=== PATIENT | male | born 1975 | race Two or more races ===

== ENCOUNTER 2025-03-28 21:46 | Emergency (ER) | payer SELFPAY ==
[2025-03-28] VITALS (19 sets, daily range): BP systolic 137–191; BP diastolic 91–120; PULSE 59–69; TEMP 36.3; O2SAT 96–97; BMI 29.8
--- NOTE | 2025-03-28 22:13 | CT_ITS ---
The [address] [address] Patient Name: GIANFRANCO VIEYRA MRN: [id number] date: 1975 Sex: M Assigned Patient Location: ER Current Patient Location: ED.MAIN Accession/Order Number: [id number] Exam Date: 03/28/2025 22:30 Report Date: 03/28/2025 23:14 At the request of: BERNA SANDERS MD Procedure: CT head/brain wo con Unenhanced head CT TECHNIQUE: Contiguous axial imaging of the head. The CT exam was performed using one or more the following dose reduction techniques: Automated exposure control, adjustment of the MA and/or Kv according to patient size, or use of the iterative reconstruction technique. COMPARISON: None HISTORY: Chest pain. Left-sided numbness. VENTRICLES: Within normal limits ATROPHY: None BRAIN PARENCHYMA: Adequate aguilera-white matter differentiation identified. HEMORRHAGE: 15 mm oval intraparenchymal hemorrhage in the posterior portion of the right basal ganglia identified. May represent hypertensive bleed. Not related to trauma or aneurysm. HERNIATION: No mass effect or herniation INFARCTION: No recent vascular distribution infarction is seen. EXTRA-AXIAL FLUID COLLECTIONS None MIDBRAIN: Unremarkable EMILIANO: Unremarkable MEDULLA: Unremarkable SINUSES: Unremarkable ORBITS: Grossly unremarkable MASTOIDS: Unremarkable BONY STRUCTURES Intact ADDITIONAL FINDINGS: CT/CT head/brain wo con IMPRESSION: 15 mm intraparenchymal bleed in the posterior aspect of the right basal ganglia. The preliminary given 11:05 PM 03/28/2025 Impression dictated by: Dinesh Schmidt M.D. 03/28/2025 11:14 PM [facility] Electron[facility] authenticated by: [id number] Y Date: 03/28/2025 23:14
--- NOTE | 2025-03-28 22:13 | ECG_ITS ---
The [facility] Test Date: 2025-03-28 Pat Name: GIANFRANCO VIEYRA Department: Room: - Gender: Male [employer]: : 1975 Requested By: [id number] Order Number: [id number] Reading MD: KELSI SAINI M.D. Measurements Intervals Mcdonough Rate: 60 P: 33 SC: 178 QRS: 35 QRSD: 104 T: 31 QT: 408 QTc: 409 Interpretive Statements 1100 Sinus rhythm 9110 normal ECG No previous ECG available for comparison Electronically Signed On 03-29-2025 18:39:24 EDT by KELSI SAINI M.D.
--- NOTE | 2025-03-28 22:13 | XR_ITS ---
[place] [id number] Patient Name: GIANFRANCO VIEYRA MRN: [id number] date: 1975 Sex: M Assigned Patient Location: ER Current Patient Location: ED.MAIN Accession/Order Number: [id number] Exam Date: 03/28/2025 22:30 Report Date: 03/28/2025 23:26 At the request of: BERNA SANDERS MD Procedure: XR chest 1V Plain film chest Single view HISTORY: Chest pain COMPARISON: None FINDINGS: SUPPORT DEVICES: None POSTSURGICAL CHANGES: None HEART: Within normal limits PULMONARY JEB: Within normal limits MEDIASTINUM: Unremarkable LUNGS AND PLEURA: No acute lung process, pleural effusion or pneumothorax identified. BONY STRUCTURES: Intact ADDITIONAL FINDINGS None XR/XR chest 1V IMPRESSION: No acute process. Impression dictated by: Dinesh Schmidt M.D. 03/28/2025 11:26 PM Dictation Location: [place] [address] Electronically authenticated by: [id number] Y Date: 03/28/2025 23:26
--- NOTE | 2025-03-28 22:14 | ED.GENADUL1 ---
HPI HPI - General Adult General Chief complaint: Neuro Symptoms/Deficit Stated complaint: NUMBNESS ON L SIDE, CHEST PAIN Time Seen by Provider: 03/28/25 21:54 Source: patient and family Limitations: language barrier History of Present Illness HPI narrative: 49-year-old male presents for a chief complaint of chest pain. He was accompanied by his daughter who provides an excellent interpretation. For about 3 days he has had a pain in the left side of his neck, not associated with any injury. Beginning about 4 or 5:00 today he developed this pain in his chest that feels like a heaviness since been intermittent. They last for about a minute at a time. His left arm and his left leg felt heavy as well. He does not complain of any weakness. He had a headache a few days ago but went away. He has been able to ambulate without difficulty. Related Data Home Medications ?Medication ?Instructions ?Recorded ?Confirmed No Known Home Medications 03/28/25 03/28/25 Allergies Allergy/AdvReac Type Severity Reaction Status Date / Time No Known Drug Allergies Allergy Verified 03/28/25 21:57 Opioid HPI Opioid Management Most Recent Opioid Data: Last Pain Scale 5 Today, 22:15 Last ED Pain Assessment Today, 22:15 Review of Systems ROS Narrative A ten point review of systems is negative except as noted above. PFSH PFSH Social History Little interest or pleasure in doing things: not at all Feeling down, depressed, or hopeless: not at all Exam Narrative Exam Narrative: Nurses note and vital signs reviewed and patient is not hypoxic. General:The patient appears well and in no apparent distress.Patient is resting comfortably on cart. Skin:Warm, dry, no pallor noted.There is no rash noted. Head:Normocephalic, atraumatic Eye: Normal conjunctiva, no drainage, EOMI. PERRL Ears, Nose, Mouth, and Throat: oral mucosa is moist. Nares patent. Cardiovascular:Regular Rate and Rhythm Respiratory:Patient is in no distress, no accessory muscle use, lungs are clear to auscultation, no wheezing, rales or rhonchi Back:non-tender GI: Soft and nontender Musculoskeletal: The patient has no evidence of calf tenderness, no pitting edema, symmetrical pulses noted bilaterally Neurological:A&O, normal speech; upper lower extremity strength 5 out of 5 and symmetric; cranial nerves II through XII intact Psychiatric:Cooperative Constitutional Vital Signs, click to edit/add: Last Vital Signs Temp 97.4 F L 03/28/25 21:58 Pulse 65 03/28/25 23:20 Resp 18 03/28/25 23:00 BP 153/100 H 03/28/25 23:15 Pulse Ox 97 03/28/25 22:00 O2 Del Method Room Air 03/28/25 21:58 Course Vital Signs Vital signs: Vital Signs Blood Pressure 184/117 H 03/28/25 21:57 Pulse Oximetry 97 03/28/25 21:57 Temperature 97.4 F L 03/28/25 21:58 Pulse Rate 65 03/28/25 23:20 Respiratory Rate 18 03/28/25 23:00 Blood Pressure 153/100 H 03/28/25 23:15 Pulse Oximetry 97 03/28/25 22:00 Oxygen Delivery Method Room Air 03/28/25 21:58 Medical Decision Making MDM Narrative Medical decision making narrative: 15 mm intraparenchymal hemorrhages noted at the right basal ganglia. This is likely from hypertension. He was hypertensive when he presented but his blood pressure improved without intervention. He has a normal neurologic exam. Cardiac workup is negative. I have spoken to Dr. Hammond at [facility] and the patient is excepted to be transferred there. The patient is stable and agreeable for transfer. The consulting physician suggested that we place the patient on a Cardene drip to keep his systolic blood pressure less than 140 and this is being accomplished. Treatment diagnosis and disposition were discussed with the patient and his family. Differential Diagnosis Differential Diagnosis: Hypertension, intraparenchymal hemorrhage, CVA Lab Data Lab results reviewed: Yes I reviewed the patient's lab results Labs: Lab Results 03/28/25 Range/Units 22:05 WBC 6.0 (4.0-11.0) 10^3/uL RBC 4.64 L (4.70-6.10) 10^6/uL Hgb 13.5 L (14.0-18.0) g/dL Hct 40.1 L (42.0-54.0) % MCV 86.4 (80.0-94.0) fL MCH 29.1 (25.9-34.0) pg MCHC 33.7 (29.9-35.2) g/dL RDW 11.9 (11.0-15.0) % Plt Count 144 L (150-450) 10^3/uL MPV 10.7 (9.5-13.5) fL Neut % (Auto) 42.6 L (43.0-75.0) % Lymph % (Auto) 42.6 (20.5-60.0) % [place] % (Auto) 12.5 H (1.7-12.0) % Eos % (Auto) 1.5 (0.9-7.0) % Baso % (Auto) 0.5 (0.2-2.0) % Neut # (Auto) 2.5 (1.4-6.5) 10^3/uL Lymph # (Auto) 2.6 (1.2-3.8) 10^3/uL [place] # (Auto) 0.8 (0.3-0.8) 10^3/uL Eos # (Auto) 0.1 (0.0-0.7) 10^3/uL Baso # (Auto) 0.0 (0.0-0.1) 10^3/uL Abs Immat Gran (auto) 0.02 (0.00-0.03) 10^3/uL Imm/Tot Granulo (auto) 0.3 (0.0-0.5) % Sodium 139 (136-145) mmol/L Potassium 4.0 (3.5-5.1) mmol/L Chloride 104 (98-107) mmol/L Carbon Dioxide 27.0 (21.0-32.0) mmol/L Anion Gap 12.0 BUN 19.0 H (7.0-18.0) mg/dL Creatinine 0.88 (0.70-1.30) mg/dL Est GFR ( Amer) >60 (>=60 mL/min/1.73m^2) Est GFR (Non-Af Amer) >60 (>=60 mL/min/1.73m^2) BUN/Creatinine Ratio 21.6 Glucose 131 H (74-106) mg/dL Calcium 8.6 (8.5-10.1) mg/dL Troponin I High Sens 9.8 (4.0-76.1) pg/mL Imaging Data CT scan - head: Radiologist's impression: ITS Impressions Chest X-Ray 03/28/25 22:13 IMPRESSION: No acute process. Impression dictated by: Dinesh Schmidt M.D. 03/28/2025 11:26 PM Dictation Location: [facility] Electronically authenticated by: [id number] Y Date: 03/28/2025 23:[address] 03/28/25 22:13 IMPRESSION: 15 mm intraparenchymal bleed in the posterior aspect of the right basal ganglia. The preliminary given 11:05 PM 03/28/2025 Impression dictated by: Dinesh Schmdit M.D. 03/28/2025 11:14 PM Dictation Location: [facility] Electronically authenticated by: [id number] Y Date: 03/28/2025 23:14 ECG Data Attestation: I personally reviewed and interpreted this ECG as follows: (EKG on my interpretation shows normal sinus rhythm with a rate of 60 and no acute change) Critical Care Time Critical Care Time Critical Care Time: Yes Total Critical Care Time: 35 Attestation: Due to the high probability of sudden and clinically significant deterioration in the patient's condition he/she required the highest level of my preparedness to intervene urgently I provided critical care time including documentation time, medication orders and management, reevaluation, vital sign assessment, ordering and reviewing of lab tests, ordering and reviewing of x-ray studies, and admission orders. Aggregate critical care time is 35 minutes including only time during which I was engaged in work directly related to his/her care and did not include time spent treating other patients simultaneously. Discharge Plan Discharge Chief Complaint: Neuro Symptoms/Deficit Clinical Impression: Spontaneous intraparenchymal intracranial hemorrhage, acute Patient Disposition: [facility] Time of Disposition Decision: 23:32 Discharge Location: [facility] Condition: Fair Mode of Transportation: EMS
[2025-03-28 22:25] LABS: Hematocrit 40.1 % (42.0-54.0); Hemoglobin 13.5 g/dL (14.0-18.0); Immature Granulocytes Abs Auto 0.02 10^3/uL (0.00-0.03); Immature Granulocytes Pct Auto 0.3 % (0.0-0.5); Lymphocytes Absolute Auto 2.6 10^3/uL (1.2-3.8); Mean Corpuscular HGB Conc 33.7 g/dL (29.9-35.2); Mean Corpuscular Hemoglobin 29.1 pg (25.9-34.0); Mean Corpuscular Volume 86.4 fL (80.0-94.0); Platelet Count 144 10^3/uL (150-450); Red Blood Count 4.64 10^6/uL (4.70-6.10); White Blood Count 6.0 10^3/uL (4.0-11.0)
[2025-03-28 22:38] LABS: Anion Gap 12.0; Blood Urea Nitrogen 19.0 mg/dL (7.0-18.0); Calcium 8.6 mg/dL (8.5-10.1); Carbon Dioxide 27.0 mmol/L (21.0-32.0); Chloride 104 mmol/L (98-107); Estimated GFR (African America >60 (>=60 mL/min/1.73m^2); Estimated GFR (Non-African Ame >60 (>=60 mL/min/1.73m^2); Glucose 131 mg/dL (74-106); Potassium 4.0 mmol/L (3.5-5.1); Sodium 139 mmol/L (136-145)
[2025-03-28] MEDS: NICARDIPINE IN NACL, ISO-OSM 40 MG/200 ML PIGGYBACK 12.5 MG IV (23:35)
[2025-03-29] VITALS (15 sets, daily range): BP systolic 124–157; BP diastolic 83–95; PULSE 66–75; O2SAT 90–99
== END 2025-03-29 02:11 | disposition short-term general hospital (02) ==
PROVIDERS: Emergency Provider Emergency Medicine
DX: R07.9 Chest pain, unspecified (principal); I62.9 Nontraumatic intracranial hemorrhage, unspecified; I10 Essential (primary) hypertension
CPT/HCPCS: 36415; 70450; 71045; 80048; 84484; 85025; 93005; 96365; 96366; 99285; J2404